=== PATIENT | female | born 1985 ===

== ENCOUNTER 2022-09-04 12:28 | Inpatient (IN) | payer OTHER ==
[~2022-09-04] VITALS: Ht 243.8 cm; Wt 68.0 kg
== END 2022-09-08 11:09 | disposition home or self-care (01) | DRG 743 ==
LOC: OB/GYN 09-06 05:38 → O/R 09-06 05:38 → OB/GYN 09-06 07:00
PROVIDERS: ADMIT Obstetrics & Gynecology; ATTEND Obstetrics & Gynecology
PROC: 0DN80ZZ Release Small Intestine, Open Approach (ICD-10-PCS; 2022-09-06)
PROC: 0UB10ZZ Excision of Left Ovary, Open Approach (ICD-10-PCS; 2022-09-06)
PROC: 0UB90ZZ Excision of Uterus, Open Approach (ICD-10-PCS; principal; 2022-09-06 07:00)
DX: D25.9 Leiomyoma of uterus, unspecified (principal); N73.6 Female pelvic peritoneal adhesions (postinfective); Z20.822 Contact with and (suspected) exposure to COVID-19; N80.102 Endometriosis of left ovary, unspecified depth